=== PATIENT | male | born 1985 | race Caucasian/White ===

== ENCOUNTER 2021-11-12 16:46 | Emergency (ER) | payer BC, OTHER ==
[2021-11-12 17:01] VITALS: BP 164/116; PULSE 98
[2021-11-12] MEDS ORDERED: Diphtheria,Pertussis(Acell),Tetanus Vaccine 0.5 ML Syringe IM ONE (17:13)
[2021-11-12] MEDS ORDERED: Lidocaine 1% 10 ML MDV INJECT ONE (17:13)
== END 2021-11-12 18:30 | disposition home or self-care (01) ==
LOC: JD.ED 16:46
DX: S61.212A Laceration without foreign body of right middle finger without damage to nail, initial encounter (principal); Z88.0 Allergy status to penicillin; Z23 Encounter for immunization; Z72.0 Tobacco use; W23.1XXA Caught, crushed, jammed, or pinched between stationary objects, initial encounter
CPT/HCPCS: 12001; 90471; 90715; 99283; 99283-25